=== PATIENT | male | born 1990 | race Caucasian/White ===

== ENCOUNTER 2017-01-13 23:29 | Emergency (ER) | payer MEDICAID, OTHER ==
[~2017-01-13] VITALS: Ht 185.4 cm; Wt 63.6 kg
[~2017-01-13 23:29] MED LIST: CIPR500T4 PO; CLOT30CR24 TOP
[2017-01-13 23:52] VITALS: Ht 185.4 cm; Wt 63.6 kg
--- NOTE | 2017-01-14 03:50 | ERD ---
ER Documentation Chief Complaint Chief Complaint DISCHARGE FROM PENIS, GIANLUCA TESTICLE PAIN TODAY HPI 26-year-old male presents to emergency department for complaints of bilateral testicular pain, penile discharge that started today. Patient had new sexual partner in the last 2 days. Patient did not use any protection. Patient denies any fever or chills. Patient denies any abdominal pain or flank pain. Patient denies any testicular swelling. ROS All systems reviewed and are negative except as per history of present illness. Medications Home Meds Active Scripts Clotrimazole* (Clotrimazole* AF) 1% - 30 Gm Cream.gm., 1 APPLIC TOP BID for 7 Days, TUB Prov:BALBINA EDGAR PA-C 10/12/15 Ciprofloxacin Hcl* (Ciprofloxacin Hcl*) 500 Mg Tablet, 500 MG PO BID for 5 Days , TAB Prov:BALBINA EDGAR PA-C 10/12/15 Allergies Allergies: Coded Allergies: No Known Allergy (Unverified , 10/12/15) PMhx/Soc Medical and Surgical Hx: pt denies Medical Hx, pt denies Surgical Hx History of Surgery: No Anesthesia Reaction: No Hx Neurological Disorder: No Hx Respiratory Disorders: No Hx Cardiac Disorders: No Hx Psychiatric Problems: No Hx Miscellaneous Medical Probl: No Hx Alcohol Use: Yes Hx Substance Use: No Hx Tobacco Use: Yes (1 pack in 2 days) Smoking Status: Current every day smoker FmHx Family History: No coronary disease, No diabetes, No other Physical Exam Vitals Vital Signs Date Time Temp Pulse Resp B/P Pulse Ox O2 Delivery O2 Flow Rate FiO2 01/13/17 23:52 98.6 106 18 132/77 97 Physical Exam GENERAL: The patient is well developed and appropriate for usual state of health, in no apparent distress. CHEST: Clear to auscultation bilaterally. There are no rales, wheezes or rhonchi. HEART: Regular rate and rhythm. No murmurs, clicks, rubs or gallops. No S3 or S4. ABDOMEN: Soft, nontender and nondistended. Good bowel sounds. No rebound or guarding. No gross peritonitis. No gross organomegaly or masses. No Hargrove sign or McBurney point tenderness. BACK: No midline or flank tenderness. EXTREMITIES: Equal pulses bilaterally. There is no peripheral clubbing, cyanosis or edema. No focal swelling or erythema. Full range of motion. Grossly neurovascularly intact. NEURO: Alert and oriented. Cranial nerves 2-12 intact. Motor strength in all 4 extremities with 5/5 strength. Sensation grossly intact. Normal speech and gait. SKIN: There is no apparent rash or petechia. The skin is warm and dry. HEMATOLOGIC AND LYMPHATIC: There is no evidence of excessive bruising or lymphedema. No gross cervical, axillary, or inguinal lymphadenopathy. : Noted yellowish penile discharge, bilateral testicular area is mild tenderness on palpation, no swelling noted. No lesions noted Results 24 hrs Current Medications Medications (Trade) Dose Ordered Sig/Micky Route PRN Reason Start Time Stop Time Status Last Admin Dose Admin Ceftriaxone Sodium (Rocephin) 250 mg ONCE ONCE IM 01/14/17 04:00 01/14/17 04:01 DC 01/14/17 04:01 Azithromycin (Zithromax) 1,000 mg ONCE ONCE PO 01/14/17 04:00 01/14/17 04:01 DC 01/14/17 04:01 IM Rocephin and azithromycin was given here in the emergency department for treatment for presumed STDs. PROCEDURE: US Scrotum. CLINICAL INDICATION: Bilateral scrotal pain TECHNIQUE: Multiple sonographic images of the scrotal region were obtained utilizing a linear array transducer with grayscale and color-flow Doppler imaging. The images were reviewed on a high-resolution PACS workstation. COMPARISON: No prior studies are available for comparison. FINDINGS: The right testicle is well visualized and has a normal echotexture. No focal areas of abnormal echogenicity are visualized. The right testicle measures 4.5 x 2.1 x 3.1 cm. There is normal color-flow and arterial flow. The right epididymis is visualized and unremarkable in appearance. There is normal color- flow. The left testicle is well visualized and has a normal echotexture. No focal areas of abnormal echogenicity are visualized. The left testicle measures 4.7 x 2.3 x 3 cm. There is normal color-flow and arterial flow. The left epididymis is visualized and is unremarkable in appearance. There is normal color-flow. The scrotal wall is unremarkable. No swelling or edema is seen. No other incidental abnormality is identified. IMPRESSION: 1. Unremarkable testicular ultrasound. No evidence of testicular torsion. RPTAT: HJES .Eze Presley MD, MD Date Time Electronically viewed and signed by .Eze Presley MD, on 01/14/2017 05:03 .S/ CC: KRISTAN CABRERA NP Procedures/MDM Medical decision making: Patient symptoms most likely is consistent with urethritis caused by possibly sexually transmitted disease. No epididymitis, no orchitis noted, no symptoms of any testicular torsion. No symptoms of pyelonephritis. Patient was advised of doing safe sex practices, was already treated with Rocephin and azithromycin here in emergency department. She was advised to return to emergency department for any worsening symptoms. Ibuprofen was given for pain Disposition: Home. Stable. Departure Diagnosis: Primary Impression: Urethritis Condition: Stable Patient Instructions: Urethritis, Male (Gc Vs. Chlam) KRISTAN CABRERA NP Jan 14, 2017 03:50
[2017-01-14] MEDS ORDERED: CEFTRIAXONE 250 MG INJ IM ONE (04:00)
[2017-01-14] MEDS ORDERED: AZITHROMYCIN 250 MG TAB PO ONE (04:00)
--- NOTE | 2017-01-14 05:03 | RADRPT ---
PROCEDURE: US Scrotum. CLINICAL INDICATION: Bilateral scrotal pain TECHNIQUE: Multiple sonographic images of the scrotal region were obtained utilizing a linear arra y transducer with grayscale and color-flow Doppler imaging. The images were reviewed on a high-resol [employer]-Center PACS workstation. COMPARISON: No prior studies are available for comparison. FINDINGS: The right testicle is well visualized and has a normal echotexture. No focal areas of abnormal echog enicity are visualized. The right testicle measures 4.5 x 2.1 x 3.1 cm. There is normal color-flow and arterial flow. The right epididymis is visualized and unremarkable in appearance. There is elizabeth l color-flow. The left testicle is well visualized and has a normal echotexture. No focal areas of abnormal echoge nicity are visualized. The left testicle measures 4.7 x 2.3 x 3 cm. There is normal color-flow and a rterial flow. The left epididymis is visualized and is unremarkable in appearance. There is normal c olor-flow. The scrotal wall is unremarkable. No swelling or edema is seen. No other incidental abnormality is identified. IMPRESSION: 1. Unremarkable testicular ultrasound. No evidence of testicular torsion. RPTAT: HJES .Eze Presley MD, Date Time Electronically viewed and signed by .Eze Presley MD, on 01/14/2017 05:03 .S/
[2017-01-14] MEDS ORDERED: IBUP-1542 PO (05:08)
== END 2017-01-14 05:15 | disposition home or self-care (01) ==
LOC: FTE 23:29
DX: N34.2 Other urethritis (principal); F17.210 Nicotine dependence, cigarettes, uncomplicated
CPT/HCPCS: 76870; 96372; J0696; Z7502; Z7610